=== PATIENT | male | born 1960 | race Caucasian/White ===

== ENCOUNTER → 2021-02-25 | Outpatient (CLI) | payer BC, OTHER ==
[~2021-02-25] VITALS: Ht 172 cm; Wt 84.0 kg
[~2021-02-25] MED LIST: AMLO10TA PO; AMLO5TAB2 PO; ASP81CT PO; CALC625T66 PO; CATHETER FLUSH 10 ML SYR IV PRN; CLOP75TA PO; CLPD75T PO; HCTZ12.5T PO; LISI1TAB PO; LISI1TAB8 PO; LSNP20T PO; MULT-963 PO; NEBI20TA2 PO; PNT40TEC PO; REGADENOSON 0.4 MG/5 ML SYR (LEXISCAN) IV ONE; RT-ALBUINH IH; SMV10T PO; SMV20T PO
[2021-02-25 09:50] VITALS: BP 141/89
--- NOTE | 2021-02-25 13:47 | Cardiology Stress Test Report ---
Stress Test Report Date of Procedure/Referring: Date of Procedure: February 25, 2021 PCP Nina Hernandez MD Admitting Physician No,Local Physician Indications: HTN Baseline Heart Rate: 73 Baseline Blood Pressure: Blood Pressure Systolic: 141 Blood Pressure Diastolic: 89 Baseline Vitals Vital Signs Date Time Temp Pulse Resp B/P (MAP) Pulse Ox O2 Delivery O2 Flow Rate FiO2 02/25/21 09:50 93 17 141/89 (106) 98 Room Air Baseline EKG: Baseline EKG: NSR Summary After explaining the procedure to the patient, he signed a consent and then brought to the stress nuclear laboratory. Patient received 0.4 mg Lexiscan for stress test, ECG, heart rate and blood pressure were monitored continuously. Resting and stress dose of radio tracer were injected, imaging was acquired and reviewed in short axis, horizontal long axis and vertical long axis views. TID: 1.2 SSS: 3 SDS: 2 EF: 82 1. Patient tolerated Lexiscan well 2. No significant ischemia or infarction on SPECT images 3. Normal left ventricular size, EF 82% NINA HERNANDEZ MD February 25, 2021 13:47
== END ==
LOC: CARD 08:45
PROVIDERS: ATTEND Internal Medicine Cardiovascular Disease
DX: I10 Essential (primary) hypertension (principal); R07.9 Chest pain, unspecified
CPT/HCPCS: 78452; 93017; A9502

== ENCOUNTER 2023-07-21 05:30 | Outpatient (CLI) | payer MEDICARE, OTHER ==
[~2023-07-21] VITALS: Ht 170.2 cm; Wt 97.5 kg
[~2023-07-21 05:30] MED LIST changes: -CATHETER FLUSH 10 ML SYR IV PRN; -REGADENOSON 0.4 MG/5 ML SYR (LEXISCAN) IV ONE
[2023-07-21] MEDS ORDERED: APIX5TAB PO (13:20)
[2023-07-21] MEDS ORDERED: CILO50TA2 PO (13:20)
[2023-07-21] MEDS ORDERED: TIOT4MIS2 IH (13:20)
[2023-07-21] MEDS ORDERED: SPIR25TA PO (13:20)
[2023-07-21] MEDS ORDERED: ATOR80TA76 PO (13:20)
[2023-07-21] MEDS ORDERED: GEMF600T88 PO (13:20)
== END 2023-07-21 13:48 | disposition home or self-care (01) ==
LOC: PREOP 05:30
PROVIDERS: ATTEND Surgery
DX: Z01.818 Encounter for other preprocedural examination (principal)

== ENCOUNTER → 2023-08-18 | Outpatient (CLI) | payer MEDICARE, OTHER ==
[~2023-08-18] MED LIST changes: +APIX5TAB PO; +ATOR80TA76 PO; +CILO50TA2 PO; +GEMF600T88 PO; +SPIR25TA PO; +TIOT4MIS2 IH
== END | disposition home or self-care (01) ==
LOC: PREOP 06:01
PROVIDERS: ATTEND Surgery
DX: Z01.818 Encounter for other preprocedural examination (principal)